=== PATIENT | female | born 1950 | race Caucasian/White ===

== ENCOUNTER 2018-09-04 15:00 | Outpatient (RCR) | payer OTHER | END 2018-09-11 | LOC: OT 15:00 | PROVIDERS: ATTEND Specialist | DX: S46.001D Unspecified injury of muscle(s) and tendon(s) of the rotator cuff of right shoulder, subsequent encounter (principal); M25.511 Pain in right shoulder; M25.611 Stiffness of right shoulder, not elsewhere classified; R53.1 Weakness ==

== ENCOUNTER → 2020-10-18 | Day surgery (SDC) | payer MEDICARE ==
[2020-10-14 10:49] LABS: BASOPHILS # (AUTO) 0.1 (0.0-0.1); BASOPHILS % 0.9 % (0.0-1.0); EOSINOPHILS # (AUTO) 0.2 (0.0-0.4); EOSINOPHILS % 2.6 % (0.0-6.0); HEMATOCRIT 41.2 % (34.2-44.1); HEMOGLOBIN 13.8 g/dL (12.0-16.0); LYMPHOCYTES # (AUTO) 2.1 (1.0-3.2); LYMPHOCYTES % 36.2 % (18.0-39.1); MEAN CORPUSCULAR HEMOGLOBIN 32.6 pg (28-32); MEAN CORPUSCULAR HGB CONC 33.5 g/dL (31-35); MEAN CORPUSCULAR VOLUME 97.4 fL (81-99); MONOCYTES # (AUTO) 0.4 (0.2-0.8); MONOCYTES % 7.7 % (4.4-11.3); NEUTROPHILS % 52.1 % (38.7-80.0); PLATELET COUNT 174 x10e3/uL (140-360); RED BLOOD COUNT 4.23 x10e6/uL (3.6-5.1); RED CELL DISTRIBUTION WIDTH 13.3 % (11.7-14.4)
[~2020-10-18] MED LIST: BUPIVACAINE HCL 0.5% 10ML MPF VIAL INJ ONE; DOXYCYCLINE HY100 M4 PO; FENTANYL CITRATE/PF 100MCG/2 ML INJ ONE; IOPAMIDOL 300MG/ML 50ML INFUS..BTL IV ONE; LIDOCAINE HCL 2% LOCAL INJ 5 ML SDV VIAL INJ ONE; MIDAZOLAM HCL 2 MG/2 ML VIAL ONE; PROPOFOL IV EMULSION 10 MG/ML 20 ML VIAL ONE; TRIAMCINOLONE ACET 40 MG/ML VIAL ONE
[2020-10-18 10:05] VITALS: BP 126/72
== END | disposition home or self-care (01) ==
LOC: OR 08:09
PROVIDERS: ATTEND Specialist
DX: M16.11 Unilateral primary osteoarthritis, right hip (principal); Z01.810 Encounter for preprocedural cardiovascular examination; Z01.812 Encounter for preprocedural laboratory examination; Z20.822 Contact with and (suspected) exposure to COVID-19
CPT/HCPCS: 20610; 36415; 77002; 85025; 93005; J2001; J2250; J2704; J3010; J3301; Q9967; U0002; 76000

== ENCOUNTER 2020-11-22 05:59 | Observation (INO) | payer MEDICARE ==
[~2020-11-22] VITALS: Ht 162.6 cm; Wt 84.8 kg
[~2020-11-22 05:59] MED LIST changes: -BUPIVACAINE HCL 0.5% 10ML MPF VIAL INJ ONE; +CELEBREX100 MG PO; -FENTANYL CITRATE/PF 100MCG/2 ML INJ ONE; +IBUPROFEN800 MG PO; -IOPAMIDOL 300MG/ML 50ML INFUS..BTL IV ONE; -LIDOCAINE HCL 2% LOCAL INJ 5 ML SDV VIAL INJ ONE; -MIDAZOLAM HCL 2 MG/2 ML VIAL ONE; -PROPOFOL IV EMULSION 10 MG/ML 20 ML VIAL ONE; -TRIAMCINOLONE ACET 40 MG/ML VIAL ONE
[2020-11-22] MEDS ORDERED: CELECOXIB 200 MG CAP ONE (06:19)
[2020-11-22] MEDS ORDERED: DEXAMETHASONE SOD PHOS 10 MG/1 ML VIAL ONE (06:20)
[2020-11-22] MEDS ORDERED: GABAPENTIN 300 MG CAP ONE (06:20)
[2020-11-22] MEDS ORDERED: CEFAZOLIN SOD 1 GM/NS 50ML 100 ML IV ONE (06:20)
[2020-11-22] MEDS ORDERED: VANCOMYCIN HCL 1,000 MG ONE (07:08)
[2020-11-22] MEDS ORDERED: TRANEXAMIC ACID 1,000 MG/10 ML ML ONE (07:09)
[2020-11-22] MEDS ORDERED: SODIUM CHLORIDE 0.9% 500ML 500 ML ONE (07:22)
[2020-11-22] MEDS ORDERED: ROPIVACAINE 246.25 MG, EPINEPHRINE HCL 1:1000 1ML 0.5 MG, CLONIDINE HCL 0.08 MG, KETORO... INJ ONE ×5 (08:00)
[2020-11-22] MEDS ORDERED: BUPIVACAINE 7.5MG/ML /DEXTROSE 82.5MG/ML 2 ML AMP INJ ONE (08:09)
[2020-11-22] MEDS ORDERED: KETOROLAC TROMETHAMINE 30 MG/ML VIAL IV PRN ×2 (10:00→22:15)
[2020-11-22] MEDS ORDERED: DOCUSATE SODIUM 100 MG CAP PO PRN (10:00)
[2020-11-22] MEDS ORDERED: HYDROCODONE/APAP 7.5MG-325MG 1 EA TAB PO PRN (10:00)
[2020-11-22] MEDS ORDERED: DIPHENHYDRAMINE HCL INJ 50 MG/ML VIAL IV PRN (10:00)
[2020-11-22] MEDS ORDERED: ONDANSETRON HCL INJ 2MG/ML 2ML 2 MG/ML VIAL IV PRN (10:00)
[2020-11-22] MEDS: SODIUM CHLORIDE 0.9% 1000ML 1,000 ML IV SCH ×2 (10:00→19:17)
[2020-11-22] MEDS ORDERED: ACETAMINOPHEN 650 MG SUPP PR PRN (10:00)
[2020-11-22 11:41] VITALS: BP 118/65
[2020-11-22 11:44] VITALS: BP 118/65
[2020-11-22] MEDS ORDERED: ACETAMINOPHEN 1000 MG/100 ML IV PRN (12:00)
[2020-11-22] MEDS ORDERED: PROPOFOL IV EMULSION 10 MG/ML 20 ML VIAL ONE (12:44)
[2020-11-22] MEDS ORDERED: ETOMIDATE 2 MG/ML 10 ML INJ IV ONE (12:44)
[2020-11-22] MEDS ORDERED: FENTANYL CITRATE/PF 100MCG/2 ML INJ ONE (13:05)
[2020-11-22] MEDS ORDERED: MIDAZOLAM HCL 2 MG/2 ML VIAL ONE (13:05)
[2020-11-22] MEDS ORDERED: KETAMINE HCL INJ 50 MG/ML 10 ML VIAL ONE (13:05)
[2020-11-22] MEDS: HYDROCODONE/APAP 5MG-325MG TAB PO PRN ×2 (15:18→23:43)
[2020-11-22] MEDS: CEFAZOLIN SOD 1 GM/NS 50ML 50 ML IV SCH ×2 (15:47→23:33)
[2020-11-22 16:00] VITALS: BP 117/86
[2020-11-22] MEDS: CELECOXIB 100 MG CAP PO SCH (16:53)
[2020-11-22] MEDS: ASPIRIN 325 MG TAB PO SCH (16:53)
[2020-11-22 20:00] VITALS: BP 123/69
[2020-11-22 20:30] VITALS: BP 123/69
[2020-11-22] MEDS ORDERED: ZOLPIDEM TARTRATE 5 MG TAB PO PRN (21:00)
[2020-11-23] VITALS: BP 108/62
[2020-11-23 04:00] VITALS: BP 124/74
[2020-11-23 04:45] LABS: BASOPHILS % 0.1 % (0.0-1.0); HEMATOCRIT 35.1 % (34.2-44.1); HEMOGLOBIN 12.1 g/dL (12.0-16.0); LYMPHOCYTES # (AUTO) 1.1 (1.0-3.2); LYMPHOCYTES % 11.4 % (18.0-39.1); MEAN CORPUSCULAR HEMOGLOBIN 33.3 pg (28-32); MEAN CORPUSCULAR HGB CONC 34.5 g/dL (31-35); MEAN CORPUSCULAR VOLUME 96.7 fL (81-99); MONOCYTES # (AUTO) 0.7 (0.2-0.8); MONOCYTES % 6.9 % (4.4-11.3); NEUTROPHILS # (AUTO) 7.8 (2.1-6.9); NEUTROPHILS % 81.2 % (38.7-80.0); PLATELET COUNT 147 x10e3/uL (140-360); RED BLOOD COUNT 3.63 x10e6/uL (3.6-5.1); RED CELL DISTRIBUTION WIDTH 13.3 % (11.7-14.4)
[2020-11-23 05:06] LABS: ANION GAP 15.2 mmol/L (8-16); BLOOD UREA NITROGEN 22 mg/dL (7-26); BUN/CREATININE RATIO 24 (6-25); CALCIUM 8.4 mg/dL (8.4-10.2); CARBON DIOXIDE 22 mmol/L (22-29); CHLORIDE 107 mmol/L (98-107); CREATININE, SERUM 0.92 mg/dL (0.57-1.11); EST GLOMERULAR FILTRATION RATE > 60 ML/MIN (60-); GLUCOSE 135 mg/dL (74-118); POTASSIUM 4.2 mmol/L (3.5-5.1); SODIUM 140 mmol/L (136-145)
[2020-11-23] MEDS: HYDROCODONE/APAP 5MG-325MG TAB PO PRN (06:30)
[2020-11-23 07:19] VITALS: BP 134/86
[2020-11-23] MEDS: CEFAZOLIN SOD 1 GM/NS 50ML 50 ML IV SCH (08:00)
[2020-11-23 08:47] VITALS: BP 134/86
[2020-11-23] MEDS: ASPIRIN 325 MG TAB PO SCH (09:00)
[2020-11-23] MEDS: CELECOXIB 100 MG CAP PO SCH (09:00)
[2020-11-23] MEDS ORDERED: ONDANSETRON HCL 4 MG ORAL DISINTEGRATING TAB PO PRN (10:00)
[2020-11-23 11:00] VITALS: BP 138/72
== END 2020-11-23 11:29 | disposition home or self-care (01) ==
LOC: OR 05:59 → PACU V 09:49 → MED/SURG 11:18
PROVIDERS: ADMIT Specialist; ATTEND Specialist
DX: M16.11 Unilateral primary osteoarthritis, right hip (principal); L71.9 Rosacea, unspecified; Z01.812 Encounter for preprocedural laboratory examination; Z01.818 Encounter for other preprocedural examination; Z20.822 Contact with and (suspected) exposure to COVID-19
CPT/HCPCS: 27130; 36415; 71046; 72170; 80048; 85025; 86850; 86900; 86920; 97116 ×2; 97161; G0378 ×2; J0171; J0690 ×2; J1100; J1885 ×2; J2250; J2704; J2795; J3010; J3370; J7040; U0002